=== PATIENT | female | born 1950 | race Caucasian/White ===

== ENCOUNTER 2016-04-03 21:24 | Emergency (ER) | payer MEDICARE, OTHER ==
--- NOTE | ~2016-04-03 | ER ---
PATIENT'S NAME: COREY MCINTOSH [facility] AGE: 65 Y [address] ROOM: [place] [address] LOCATION: ED ADMIT DATE: 04/03/2016 ER/Outpatient Report DISCHARGE DATE: 04/04/2016 FAMILY PHYSICIAN: PHYSICIAN, NO ATTENDING PHYSICIAN: Clayton Sheikh Time of Arrival: 2125 hours. Time of Exam: 2125 hours. CHIEF COMPLAINT: Chest pain with movement and deep breath. HISTORY OF PRESENT ILLNESS: The patient states she started having left-sided chest pain at approximately 2 o'clock today. The pain is severe with any kind of movement and deep breaths. She has been nauseated, has vomited. States she has had some generalized shortness of breath. She was seen in [place] today and they did labs and CT of her abdomen. She got fentanyl for the pain which she said did not really help a whole lot. She also received Zofran and some Toradol. They sent her home with a prescription for Zithromax and prednisone, and told her to follow up with her primary provider if symptoms persist or worsen. Her lab work at that time was normal and the copy of the CT scan that she gives us shows all are within normal. Also they were concerned that she may be having a kidney stone but she states her pain is all in the anterior aspect, just below the left breast. ALLERGIES: ZETIA AND CRESTOR. CURRENT MEDICATIONS: On her chart and reviewed by me. PAST MEDICAL HISTORY: Hypertension, GERD, atrial fibrillation. PAST SURGERIES: Benign. SOCIAL HISTORY: She lives in [place], [place] with her . Denies use of tobacco or drugs. Does drink wine on a social basis. Works for [employer]. States she did work today but the pain has just become unbearable. LABORATORY DATA: EKG was completed, it shows a sinus rhythm. CBC is within normal limits. PATIENT'S NAME: COREY MCINTOSH [facility] AGE: 65 Y [address] ROOM: [place] [address] LOCATION: ED ADMIT DATE: 04/03/2016 ER/Outpatient Report DISCHARGE DATE: 04/04/2016 FAMILY PHYSICIAN: PHYSICIAN, NO ATTENDING PHYSICIAN: Clayton Sheikh Chem panel: Sodium is 139, potassium is 3.9, chloride of 106. Her CPK is 81, CK-MB is 2, and troponin is normal. She did have to urinate, a clean-catch UA was obtained. It is negative for any signs of infection. EMERGENCY DEPARTMENT COURSE: She was given Dale 5/325 times 2 tablets. Chest x-ray was completed. No acute processes noted. She continues to have problems with generalized discomfort, O2 sats hung right around 88% to 95%. We did do a D-dimer on her. It was 0.22. She was given Valium 5 mg p.o. Monitor continues to show Normal Sinus Rhythm. Blood pressure is stable. IMPRESSION: Chest wall pain. PLAN: Home, rest. She is to get the prescriptions from [place] for the prednisone and Zithromax filled and take as directed. Heat to the chest area. I did give her prescription for Zofran to have as needed for nausea. She is to follow up with her primary provider in the next 1-2 days if symptoms persist. She verbalized understanding. VIC AVITIA APRN FOR MD SALLY CARBONE/nikita /[id number] d: 04/04/16 0716 t: 04/07/16 1813, OUTPATIENT REPORT
[2016-04-03 21:52] LABS: BILIRUBIN URINE NEGATIVE (NEGATIVE); BLOOD URINE NEGATIVE /UL (NEGATIVE); GLUCOSE URINE 50 mg/dL (NEGATIVE); KETONE URINE 5 mg/dL (NEGATIVE); LEUKOCYTES URINE 100 /UL (NEGATIVE); NITRITE URINE NEGATIVE (NEGATIVE); PROTEIN URINE NEGATIVE (NEGATIVE); UROBILINOGEN URINE NORMAL (NORMAL)
[2016-04-03 21:54] LABS: COLOR URINE YELLOW (YELLOW); TURBIDITY URINE CLEAR (CLEAR)
[2016-04-03 22:01] LABS: RBC URINE NEGATIVE #/HPF (NEGATIVE)
[2016-04-03 22:02] LABS: BACTERIA URINE NEGATIVE (NEGATIVE); EPITHELIAL URINE 0-2 #/HPF (NEGATIVE); MUCUS URINE 1+ (NEGATIVE)
[2016-04-03 22:10] LABS: BASOPHIL % 0.4 %; HEMATOCRIT 40.1 % (33.0-46.0); HEMOGLOBIN 13.2 g/dL (10.0-15.0); IMMATURE GRANULOCYTE % 0.4 %; LYMPHOCYTE # 1.2 K/uL (0.8-4.0); MCH 28.3 pg (27.0-34.0); MCHC 32.9 gm/dL (32.0-36.5); MCV 85.9 fl (83.0-98.0); MONOCYTE # 0.2 K/uL (0.0-1.0); MONOCYTE % 4.2 %; MPV 9.2 fl (9.4-12.4); NEUTROPHIL # (ANC) 3.7 K/uL (1.8-7.8); NRBC % 0 /100WBC (0-0.00); PLATELET COUNT 217 K/uL (150-450); RBC 4.67 M/uL (3.50-5.50); RDW-CV 13.2 % (11.9-14.6); WBC 5.2 K/uL (4.0-11.0)
[2016-04-03 22:19] LABS: PTT 26 SECONDS (25-32)
[2016-04-03 22:28] LABS: ALBUMIN 3.9 gm/dL (3.5-5.0); ALK PHOS 79 IU/L (33-138); ALT 23 IU/L (12-78); ANION GAP 10.9 (10.0-19.0); AST 14 IU/L (10-40); BLOOD UREA NITROGEN 11 mg/dL (6-24); CALCIUM 8.1 mg/dL (8.5-10.5); CHLORIDE 106 mMol/L (96-110); CO2 26 mMol/L (22-32); CPK 81 IU/L (21-215); CREATININE 0.8 mg/dL (0.5-1.1); ESTIMATED GFR (MDRD EQUATION) > 60; MAGNESIUM 1.7 mg/dL (1.3-2.6); POTASSIUM 3.9 mMol/L (3.7-5.1); SODIUM 139 mMol/L (135-145); TOTAL BILIRUBIN 0.6 mg/dL (0.0-1.5); TOTAL PROTEIN 6.9 g/dL (6.0-8.4)
== END 2016-04-04 00:28 | disposition disaster alternative care site (69) ==
LOC: GMED 21:24
PROVIDERS: Emergency Medicine
DX: R07.89 Other chest pain (principal); I10 Essential (primary) hypertension; K21.9 Gastro-esophageal reflux disease without esophagitis; I48.91 Unspecified atrial fibrillation; Z88.8 Allergy status to other drugs, medicaments and biological substances